=== PATIENT | female | born 2000 | race Caucasian/White ===

== ENCOUNTER → 2020-10-15 11:50 | Outpatient (BNVA) | payer OTHER, SELFPAY | PROVIDERS: PCP Nurse Practitioner Family; Visit Provider Nurse Practitioner Family | DX: E05.90 Thyrotoxicosis, unspecified without thyrotoxic crisis or storm (principal); F41.9 Anxiety disorder, unspecified; F32.9 Major depressive disorder, single episode, unspecified; Z13.6 Encounter for screening for cardiovascular disorders; E55.9 Vitamin D deficiency, unspecified; Z79.899 Other long term (current) drug therapy | CPT/HCPCS: 85025 ==

== ENCOUNTER → 2020-10-15 12:00 | Outpatient (BNVA) | payer OTHER, SELFPAY | PROVIDERS: PCP Nurse Practitioner Family; Visit Provider Nurse Practitioner Family | DX: E05.90 Thyrotoxicosis, unspecified without thyrotoxic crisis or storm (principal); F41.9 Anxiety disorder, unspecified; F32.9 Major depressive disorder, single episode, unspecified; Z13.6 Encounter for screening for cardiovascular disorders; E55.9 Vitamin D deficiency, unspecified; Z79.899 Other long term (current) drug therapy | CPT/HCPCS: 80053; 80061; 82306; 82310; 83036; 83516; 83970; 84439; 84443; 84481 ==

== ENCOUNTER → 2020-12-15 09:32 | Outpatient (BNVA) | payer OTHER, SELFPAY | PROVIDERS: PCP Nurse Practitioner Family; Visit Provider Nurse Practitioner Family | DX: E05.90 Thyrotoxicosis, unspecified without thyrotoxic crisis or storm (principal) | CPT/HCPCS: 83516; 84439; 84443; 84480; 86376 ==

== ENCOUNTER → 2020-12-24 10:50 | Outpatient (BNVA) | payer OTHER, SELFPAY | PROVIDERS: PCP Nurse Practitioner Family; Visit Provider Internal Medicine | DX: E05.90 Thyrotoxicosis, unspecified without thyrotoxic crisis or storm (principal); E04.2 Nontoxic multinodular goiter; E55.9 Vitamin D deficiency, unspecified; R00.0 Tachycardia, unspecified; Z87.891 Personal history of nicotine dependence | CPT/HCPCS: 99214 ==

== ENCOUNTER → 2021-01-31 10:15 | Outpatient (BNVA) | payer OTHER, SELFPAY | PROVIDERS: PCP Nurse Practitioner Family; Visit Provider Internal Medicine | DX: E05.90 Thyrotoxicosis, unspecified without thyrotoxic crisis or storm (principal); E04.2 Nontoxic multinodular goiter; R00.0 Tachycardia, unspecified; Z87.891 Personal history of nicotine dependence | CPT/HCPCS: 99214 ==

== ENCOUNTER → 2021-02-16 11:44 | Outpatient (BNVA) | payer OTHER, SELFPAY | PROVIDERS: PCP Nurse Practitioner Family; Visit Provider Nurse Practitioner Family | DX: E04.2 Nontoxic multinodular goiter (principal); E05.90 Thyrotoxicosis, unspecified without thyrotoxic crisis or storm | CPT/HCPCS: 85025 ==

== ENCOUNTER 2021-03-25 07:06 | Outpatient (CLI) | payer OTHER, SELFPAY ==
--- NOTE | 2021-03-25 07:17 | US_ITS ---
WS: [id number] ULTRASOUND BREAST RIGHT TECHNIQUE: Ultrasound right breast focused area of concern. CLINICAL INFORMATION: UNSPEC LUMP IN RIGHT BREAST UPPER OUTER QUADRNT COMPARISON: Outside Ultrasound August 04, 2020 FINDINGS: Ultrasound right breast at the 10:00 position 3 cm from the nipple. Again seen is the 2.0 x 1.1 x 1.8 cm hypoechoic well-circumscribed lesion at the 10:00 position 3 cm from the nipple likely fibroadeno ma. This is unchanged in appearance from the prior outside examination. This is probably benign. US/US breast RT limited* [id number] IMPRESSION: BI-RADS 3 probably benign FOLLOW UP: Recommend additional six-month follow-up ultrasound to confirm stabi lity. Alternatively, this could be further evaluated with ultrasound-guided biopsy fo r definitive evaluation
== END 2021-03-25 07:07 | disposition home or self-care (01) ==
PROVIDERS: PCP Nurse Practitioner Family; Visit Provider Nurse Practitioner Family
DX: N63.11 Unspecified lump in the right breast, upper outer quadrant (principal)
CPT/HCPCS: 76642

== ENCOUNTER 2021-07-22 12:24 | Outpatient (CLI) | payer OTHER, SELFPAY ==
--- NOTE | 2021-07-22 12:43 | US_ITS ---
WS: [id number] ULTRASOUND-GUIDED RIGHT BREAST BIOPSY HISTORY: LUMP IN RIGHT BREAST COMPARISON: 03/25/2021 Procedure, risks and complications are explained to the patient. Medications are reviewed. Consent is obtained. The mass in the RIGHT breast is localized with ultrasound. Mass localizes to 10:00, 3 cm from the nip ple. Skin is cleansed with ChloraPrep and anesthetized with 1% buffered lidocaine. Small dermatome is made. Under sterile conditions mass is biopsied with a 14-gauge Achieve needle. Multiple core biopsi es are performed. Material placed in formalin and sent to pathology for review. No complications enco untered. Breast tissue marker ([employer] ultrasound enhanced ribbon): Single. Patient left the radiology suite with no complications. Patient is instructed to return to [facility] with any concerns. US/[place] [id number] IMPRESSION: 1. Uncomplicated core needle biopsy RIGHT breast mass at 10:00. PATHOLOGY: Benign fibroadenoma. No atypia or malignancy. RECOMMENDATION: No additional imaging necessary. This could be surgically remov ed patient desires.
== END 2021-07-22 12:25 | disposition home or self-care (01) ==
PROVIDERS: PCP Nurse Practitioner Family; Visit Provider Nurse Practitioner Family
DX: N63.11 Unspecified lump in the right breast, upper outer quadrant (principal)
CPT/HCPCS: 19083; 88305

== ENCOUNTER 2021-08-31 15:11 | Observation (INO) | payer OTHER, SELFPAY ==
[2021-08-30 09:46] VITALS: BMI 16.9
[2021-08-31] VITALS (22 sets, daily range): BP systolic 101–126; BP diastolic 53–72; PULSE 54–79; RESP 12–20; TEMP 36.2–37.1; O2SAT 95–99; BMI 17.2
[2021-08-31] MEDS: sodium chloride 0.9% 1,000 ML 30 ML IV ×2 (06:41→12:02)
--- NOTE | 2021-08-31 06:43 | W.PM.OPSUD ---
Surgery/Procedure H&P Update DATE OF PROCEDURE: August 31, 2021 DATE H&P PERFORMED: 08/19/21 PRIMARY INDICATION FOR PROCEDURE: Grave's disease, uncontrolled PLANNED PROCEDURE: Operation Date: 08/31/21 07:00 Proposed Procedures p Total Thyroidectomy 72317,E0500,E042(Not Applicable) - Johnny Samuels MD
[2021-08-31 06:48] LABS: OR HCG Qualitative Urine Negative (Negative)
--- NOTE | 2021-08-31 07:02 | ANES.PREANE2 ---
Pre-Anesthetic Assessment Height/Weight: Height 1.68 m Weight 47.627 kg Temp Pulse Resp BP Pulse Ox 98.8 F 67 17 106/72 99 08/31/21 06:13 08/31/21 06:13 08/31/21 06:13 08/31/21 06:13 08/31/21 06:13 Operation Date: 08/31/21 07:00 Proposed Procedures p Total Thyroidectomy 25910,E0500,E042(Not Applicable) - Johnny Samuels MD Familial anesthetic complications: None Was Beta Brian taken within 24 hours: Yes Was Clonidine taken within 24 hours: N/A Last intake: Intake Last Liquid Date 08/30/21 Last Liquid Time 23:58 Last Solid Date 08/30/21 Last Solid Time 19:00 Social Tobacco (emilie) and No alcohol Exam alert, oriented x 3, clear to auscultation bilaterally and regular rate & rhythm Airway Submandibular: within normal limits Cervical ROM: within normal limits Mallampati: Class II Dentition: chipped Metabolic Thyroid Disease (hyperthyroid, goiter) Neuropsych Anxiety and Depression Anesthetic Plan ASA status: 2 Anesthesia: General Medications/Allergies Home Medications Medication Instructions Recorded Confirmed Last Taken Type cholecalciferol (vitamin D3) 10 10 mcg PO DAILY 01/31/21 08/31/21 08/30/21 10:00 History mcg (400 unit) capsule cetirizine 10 mg tablet (All Day 10 mg PO DAILY PRN 30 Days #30 tab 03/04/21 08/30/21 Unknown Rx Allergy (cetirizine)) methimazole 10 mg tablet 40 mg PO DAILY #360 tab 04/29/21 08/31/21 08/30/21 10:00 Rx cholestyramine (with sugar) 4 gram 4 g PO BID #378 g 07/26/21 08/31/21 08/30/21 10:00 Rx oral powder hydroxyzine HCl 25 mg tablet 25 mg PO ONCE tab 07/26/21 08/31/21 08/30/21 23:58 History sertraline 50 mg tablet 100 mg PO DAILY tab 07/26/21 08/31/21 08/30/21 17:00 History propranolol 10 mg tablet 20 mg PO TID 08/30/21 08/31/21 08/30/21 23:58 History iodine 18 ea MISCELLANEOUS TID 08/31/21 08/31/21 08/31/21 04:30 History Allergies Allergy/AdvReac Type Severity Reaction Status Date / Time No Known Allergies Allergy Verified 08/31/21 06:14 Current Medications Generic Name Dose Route Start Last Admin Trade Name Qamar PRN Reason Stop Dose Admin Sodium Chloride 1,000 mls @ 30 mls/hr 08/31/21 06:15 08/31/21 06:41 Sodium Chloride 0.9% IV 09/01/21 06:14 30 mls/hr .Q24H MATTHEW Administration PFSH Anesthesia Medical History Acute bacterial sinusitis Anxiety and depression Hyperthyroidism Multinodular goiter Tachyarrhythmia Vitamin D deficiency Surgical History No pertinent past surgical history Family History Other Hypertension Social History Smoking and tobacco status: former smoker Quit status (tobacco): has quit using tobacco Second hand smoke exposure: Yes Smoking risk assessment/counseling performed?: Yes Alcohol intake: current Alcohol intake frequency: few times a month Alcohol type: other Desire information about alcohol rehabilitation?: No Counseling given: No Desire information about substance/drug rehabilitation?: No Counseling given: Yes Adopted: No Caregiver/support person: No Lives independently: Yes Household members: other Housing: Apartment Marital status: Number of children: 0 Highest education level completed: High School Graduate service: No Current occupational status: employed History of recent travel: No Female Reproductive History Date of last menstrual period: 09/04/21 Data Anesthesia Cardiac Studies: No Data to Display
[2021-08-31] MEDS: EPINEPHrine 1 mg/mL INJ 2 MG XX (08:43)
[2021-08-31] MEDS: fluorescein 1 mg Strip XX (08:45)
[2021-08-31] MEDS: ceFAZolin 1,000 mg SDV 1000 MG IRRIGATION (08:46)
[2021-08-31] MEDS: thrombin 5,000 unit SDV 5000 UNIT XX (09:01)
[2021-08-31] MEDS: neomycin-poly-bacitracin oint 28 gm 1 APPLIC TOPICAL (09:07)
[2021-08-31] MEDS: EPINEPHrine 1 mg/mL INJ XX (09:55)
--- NOTE | 2021-08-31 10:45 | PM.OP ---
Operative Report Date of procedure: August 31, 2021 Pre-op diagnosis: Grave's disease, uncontrolled Post-op diagnosis: same Post-op findings: Goiterous bilateral thyroid gland Normal bilateral recurrent laryngeal nerves Normal bilateral parathyroid glands Procedure done: Total thyroidectomy Specimens removed/disposition: Right and Left thyroid lobes Pathology: Right and left thyroid lobes Surgeon: Johnny Samuels Cisco Administrator: Camille Gabriel Anesthesia: General Estimated blood loss (mL): 25 IV fluids (mL): 900 Urine output (mL): 500 Complications: None Findings: Goiterous bilateral thyroid gland Normal bilateral recurrent laryngeal nerves Normal bilateral parathyroid glands Condition: stable Disposition: ICU Brief History: 21 yo wf who has a h/o Grave's disease that has been poorly controlled on medical therapy. The patient desires surgical thyroidectomy. Procedure: The patient was identified in the preoperative holding area and was taken to the operating room where she was placed on the operating table in the supine position. Anesthesia was obtained with general endotracheal anesthesia after placing the nerve monitoring electrode on the endotracheal tube and ensuring its proper placement with the glide scope. A horizontal skin incision was drawn out over the anterior neck 2 fingerbreadths above the sternal notch between the heads of the sternocleidomastoid muscle. The neck wound was injected with local anesthesia and the patient was then prepped and draped in the usual sterile fashion. The incision was made with a 15 blade and was carried down through the subcutaneous tissues with electrocautery until the strap muscles were identified. The strap muscles were then divided in the sagittal plane in the avascular midline, and attention was then turned to the patient's left thyroid lobe. After placing the [place] retractor, the left thyroid lobe was dissected free from the surrounding tissues with the Neurvana nerve monitoring hemostat. Once the general outlines of the left thyroid lobe had been identified, attention was turned to the left carotid sheath and the left vagus nerve was stimulated with a positive response in the left carotid sheath. At this point a circumferential dissection occurred around the patient's left thyroid lobe with attention initially to the left lower pole. The individual vessels were dissected off the thyroid capsule at the inferior pole and were clipped and ligated in a sequential fashion. As the dissection proceeded, the left thyroid lobe was rotated medially and the recurrent laryngeal nerve was identified in the tracheoesophageal groove electrically with the nerve monitoring hemostat and then visually with 5 power loupe magnification. At this point the thyroid isthmus was dissected off of the trachea and was divided with the harmonic scalpel. The dissection then proceeded up to the superior pole of the left thyroid lobe and each of the individual vessels was dissected free from the surrounding tissues. The superior pole vessels were then individually ligated at the capsule with ligaclips, and were divided with bipolar cautery. As the dissection thus proceeded, the recurrent laryngeal nerve and parathyroids came into view and were preserved in place. The left lobe was then rotated medially and was dissected off of the airway by dividing Barrera's ligament while protecting the recurrent laryngeal nerve with microbipolar forceps. Once the left lobe was removed it was inspected for parathyroids and none were identified on the specimen. The specimen was then handed off and attention was turned to the left tracheoesophageal groove for hemostasis. Hemostasis was achieved with bipolar cautery and ligaclips. Once hemostasis had been achieved and the viability of the parathyroid glands have been ensured, the left tracheoesophageal groove was filled with Gelfoam soaked in thrombin and dexamethasone. At this point the left vagus was again restimulated and with positive results ensuring the viability of the left recurrent laryngeal nerve. At this point attention was turned to the right thyroid lobe where a identical procedure was performed. At this point with both lobes removed, a 10 mm [place] drain was placed in the wound and the wound was closed with interrupted 4-0 and 5-0 Monocryl sutures and subcu and Dermabond and Steri-Strips on the skin. At this point the procedure was terminated and control of the patient was returned to anesthesia where she underwent an uneventful reversal of anesthesia and extubation was taken to the recovery room stable condition. There were no operative or anesthetic complications.
[2021-08-31] MEDS: fentaNYL 50 mcg/mL INJ 2mL IVP (11:00)
[2021-08-31 11:43] LABS: Calcium 8.9 mg/dL (8.5-10.5)
[2021-08-31 11:51] LABS: Parathyroid Hormone 9.6 pg/mL (15-65)
--- NOTE | 2021-08-31 14:13 | ANE.PACU2 ---
Inpatient post-anesthesia follow up: Airway intact: Yes Vital signs: Temperature 97.7 F Pulse Rate 64 Respiratory Rate 16 Blood Pressure 105/65 Pulse Oximetry 97 Oxygen Delivery Me thod Room Air Oxygen Flow Rate Fraction of Inspir ed Oxygen Hydration adequate: Yes Nausea and vomiting: No Pain level: 2 Mental status: Baseline
[2021-08-31] MEDS: lactated ringers 1,000 ML 100 ML IV (16:14)
[2021-08-31] MEDS: HYDROcodone-acetaminophen 5-325 mg Tablet 1 TAB PO ×2 (16:17→22:36)
[2021-08-31] MEDS: ceFAZolin 1,000 MG in sodium chloride 0.9% (plus) 50 ML 100 MG IV ×2 (16:51→22:37)
[2021-08-31] MEDS: docusate sodium 100 mg Capsule PO (16:59)
[2021-08-31] MEDS: famotidine 20 mg/2 mL INJ IVP (16:59)
[2021-08-31 17:27] LABS: Glucose Point of Care 181 mg/dL (70-110)
--- NOTE | 2021-08-31 17:35 | P.PN_ITS ---
Subjective Subjective: 21 yo wf with a h/o Grave's disease who is night of surgery s/p total thyroidectomy. The patient is without c/o. Medications: Reviewed: Yes Vitals/I&O/Wt Last Vital Signs Temp 98.2 F 08/31/21 15:36 Pulse 64 08/31/21 15:36 Resp 12 08/31/21 15:36 BP 108/64 08/31/21 15:36 Pulse Ox 98 08/31/21 15:36 08/31/21 08/31/21 08/31/21 06:59 14:59 22:59 Intake Total 1350 / 1350 975.5 / 2325.5 Output Total 1350 / 1350 10 / 1360 Balance 0 / 0 965.5 / 965.5 Weight last 48 hrs Weight 48.353 kg Weight 47.627 kg Physical Exam Const: COMMON NORMALS: no acute distress, patient oriented x3 and healthy appearing HENMT: COMMON NORMALS: normocephalic, atraumatic and Normal external nose present HEAD & SCALP: normocephalic and atraumatic FACE & SINUS: normal facial exam NOSE: Normal external nose present MOUTH: Normal oral and palatal mucosa present Neck/C-Spine: COMMON NORMALS: full ROM GENERAL: Yes other THYROID: other (The patient's neck wound is clean and without swelling. ) Chest: COMMONS NORMALS: normal inspection of the chest Resp: COMMON NORMALS: normal respiratory effort, No use of accessory muscles and clear to auscultation bilaterally AUSCULTATION: clear to auscultation bilaterally Neuro: COMMON NORMALS: patient oriented x3 Urinary Catheter Management: [place]: Cath Placed During This Visit: yes Urinary Catheter Date of Insertion: 08/31/21 Urinary Catheter Time of Insertion: 07:20 Data Attestation for Other Data: I personally reviewed and interpreted the following: Other data: Serum Calcium and PTH levels A&P Assessment and plan (1) Hyperthyroidism: Impression: Night of surgery doing well from this standpoint Plan: - Observation of the patient's airway - Closed suction drainage - Will d/c when the patient's post op calcium levels are stable Status: Acute (2) Parathyroid hormone deficiency: Impression: Post op serum calcium level is moderately low Plan: - Begin Calcitriol 0.25 mcg po BID - Begin Tums 1000 mg po Q4 hours - Will recheck serum calcium levels BID - Will discharge the patient when serum calcium levels are stable Status: Acute Attestations Medical Necessity Statement*: The patient is admitted for monitoring of her post op serum calcium levels and airway Coding Level of Care Code Acute Nuclear Reactor Operator for Chg Fwd Diagnoses Hyperthyroidism E05.90 Parathyroid hormone deficiency E20.9
[2021-08-31] MEDS: calcium carbonate 500 mg Chew Tablet 1000 MG PO ×2 (17:49→21:40)
[2021-08-31] MEDS: calcitriol 0.25 mcg Capsule PO (17:50)
--- NOTE | 2021-08-31 18:04 | PC.NURSE ---
serium calcium order given at 0500 and 1700 BID . call with results.
--- NOTE | 2021-08-31 18:04 | PC.NURSE ---
bonnet applied to patient. knits visualized. physician notified , no new orders given at this time.
[2021-08-31 18:44] LABS: Calcium 7.8 mg/dL (8.5-10.5)
[2021-08-31] MEDS: propranolol 20 mg Tablet PO (21:41)
[2021-09-01] VITALS (11 sets, daily range): BP systolic 97–132; BP diastolic 61–78; PULSE 43–75; RESP 12–18; TEMP 36.4–37.1; O2SAT 97–100
--- NOTE | 2021-09-01 01:56 | PC.NURSE ---
i reported low heart rate 53 to nurse
[2021-09-01] MEDS: calcium carbonate 500 mg Chew Tablet 1000 MG PO ×6 (02:33→20:58)
[2021-09-01] MEDS: lactated ringers 1,000 ML 100 ML IV ×3 (02:33→22:46)
--- NOTE | 2021-09-01 05:02 | P.PN_ITS ---
Subjective Subjective: 21 yo wf who is POD #1 s/p total thyroidectomy for Grave's disease. The patient reports that she is doing well. She has no c/o. Medications: Reviewed: Yes Vitals/I&O/Wt Last Vital Signs Temp 98.7 F 09/01/21 00:00 Pulse 53 L 09/01/21 00:00 Resp 18 09/01/21 00:00 BP 109/67 09/01/21 00:00 Pulse Ox 99 09/01/21 00:00 08/31/21 08/31/21 09/01/21 14:59 22:59 06:59 Intake Total 1350 / 1350 1025.5 / 2375.5 1050 / 3425.5 Output Total 1350 / 1350 20 / 1370 Balance 0 / 0 1005.5 / 1005.5 1050 / 2055.5 Weight last 48 hrs Weight 48.353 kg Weight 47.627 kg Physical Exam Const: COMMON NORMALS: no acute distress and patient oriented x3 HENMT: COMMON NORMALS: normocephalic, atraumatic and Normal external nose present HEAD & SCALP: normocephalic and atraumatic FACE & SINUS: other (Negative Chvostek's sign. ) NOSE: Normal external nose present TEETH & GINGIVA: Yes poor dentition Eye: COMMON NORMALS: conjunctivae normal CONJUNCTIVA: Yes conjunctivae normal Neck/C-Spine: COMMON NORMALS: no lymphadenopathy GENERAL: Yes other (Neck wound intact without swelling or redness.) Resp: COMMON NORMALS: normal respiratory effort Cardio: COMMON NORMALS: regular rate, regular rhythm and No murmurs present (Cardio) RATE: regular rate RHYTHM: regular rhythm GI: COMMON NORMALS: Normal to inspection, nondistended, normoactive bowel sounds present Extremity: COMMON NORMALS: normal to inspection Neuro: COMMON NORMALS: patient oriented x3 and CN's II-XII intact bilaterally SENSORIUM/ORIENTATION: Yes other (The patient's voice is unchanged from preop.) Urinary Catheter Management: [place]: Cath Placed During This Visit: yes Urinary Catheter Date of Insertion: 08/31/21 Urinary Catheter Time of Insertion: 07:20 Data Other Labs: Serum Calcium level pending A&P Assessment and plan (1) Hyperthyroidism: Impression: 21 yo wf who is POD #1 s/p Total thyroidectomy doing well except as noted below Plan: - Regular diet - Closed suction drainage - The patient is to remain admitted until serum calcium level is stable Status: Acute (2) Parathyroid hormone deficiency: Impression: Post op hypocalcemia - most likely temporary Plan: - Started po Calcitriol and Tums Q4 hours yesterday - We will check serum calcium and albumin levels BID - The patient will be discharged when serum calcium levels are stable Status: Acute Attestations Medical Necessity Statement*: The patient is admitted for monitoring of her airway and post op serum calcium levels. Coding Level of Care Code Acute Telephone Information Supervisor for Chg Fwd Diagnoses Hyperthyroidism E05.90 Parathyroid hormone deficiency E20.9
[2021-09-01 05:52] LABS: Albumin Level 3.7 g/dL (3.5-5.2)
--- NOTE | 2021-09-01 06:21 | PC.NURSE ---
i reported low pulse 50 to nurse
[2021-09-01] MEDS: famotidine 20 mg/2 mL INJ IVP (09:13)
[2021-09-01] MEDS: calcitriol 0.25 mcg Capsule PO ×2 (09:13→17:47)
[2021-09-01] MEDS: docusate sodium 100 mg Capsule PO ×2 (09:14→17:43)
[2021-09-01] MEDS: sertraline 100 mg Tablet PO (09:14)
--- NOTE | 2021-09-01 09:47 | PC.CHAP ---
Pastoral Care Encounter/Spiritual Assessment Type of Contact [] Declined wrong address clerk visit [] Patient/Family/Request visit [] Outpatient visit [] Follow-up visit [] Physician referral [] Code/Alert [] Routine visit [] Staff referral [] Actively dying [] Patient sleeping [] Family support [] [] Out of room [] Palliative care [x] [] Receiving care in room [] Pre-surgical visit [] Trauma [] Long length of stay [] ICU visit [] Other: Relational/Emotional Strength [] Patient feels connected with others/family/visitors/staff [] Distress [] Loneliness/isolation [] Abandonment Spirituality of Patient [] Person of Jennifer [] Attends Uatsdin of their Jennifer [] Believes in Prayer [] Reads Bible or Muslim materials [] There are Spiritual issues to be addressed Mail List Processor Interventions [] Prayer [] Active listening [] Non-anxious presence [] Spiritual/emotional support [] Crisis/trauma care [] Spiritual counseling [] Bereavement support [] Provided bereavement packet [] Provided Bible/devotional materials [] Provided toy/stuffed animal, coloring book to patient or family member [] Provided Communion [] Anointing/[place] [] Salvation [] Completed spiritual assessment [] Other: Impact on Illness or Injury [] Angry [] Fearful [] Anxious [] Often cries [] Exhaustion [] Unable to work [] Unable to attend yazidism [] Unable to walk/stand [] Unable to read [] Unable to drive [] Unable to eat/drink [] Unable to sleep [] Unable to be with family [] Patient intubated [] Other: Summary Time spent with patient 5 mins
[2021-09-01] MEDS: HYDROcodone-acetaminophen 5-325 mg Tablet 1 TAB PO ×3 (11:18→20:57)
[2021-09-01] MEDS: neomycin-poly-bacitracin oint 28 gm 1 APPLIC TOPICAL ×2 (13:26→21:06)
[2021-09-01] MEDS: propranolol 20 mg Tablet PO (15:12)
[2021-09-01 17:43] LABS: Calcium 8.4 mg/dL (8.5-10.5)
[2021-09-01] MEDS: famotidine 20 mg Tablet PO (17:43)
[2021-09-02] MEDS: calcium carbonate 500 mg Chew Tablet 1000 MG PO ×2 (02:50→05:39)
[2021-09-02 03:55] VITALS: BP 108/64; PULSE 68; RESP 15; TEMP 36.6; O2SAT 93
--- NOTE | 2021-09-02 05:37 | PM.PN ---
Subjective Subjective: 21 yo wf who is POD #2 s/p total thyroidectomy. The patient has had post op hypocalcemia, but has no c/o relating to this. She is taking po well, and is o/w without c/o. Medications: Reviewed: Yes Vitals/I&O/Wt Last Vital Signs Temp 97.8 F 09/02/21 03:55 Pulse 68 09/02/21 03:55 Resp 15 09/02/21 03:55 BP 108/64 09/02/21 03:55 Pulse Ox 93 09/02/21 03:55 09/01/21 09/01/21 09/02/21 14:59 22:59 06:59 Intake Total 1240 / 1240 1000 / 2240 Output Total 5 / 5 Balance 1235 / 1235 1000 / 2235 Weight last 48 hrs Weight 48.353 kg Physical Exam Const: COMMON NORMALS: no acute distress and patient oriented x3 HENMT: COMMON NORMALS: normocephalic, atraumatic and Normal external nose present HEAD & SCALP: normocephalic and atraumatic NOSE: Normal external nose present TEETH & GINGIVA: Yes poor dentition Eye: COMMON NORMALS: conjunctivae normal CONJUNCTIVA: Yes conjunctivae normal Neck/C-Spine: COMMON NORMALS: supple GENERAL: Yes other (The neck incision is intact without swelling or redness.) Resp: COMMON NORMALS: normal respiratory effort, No retractions, No use of accessory muscles and clear to auscultation bilaterally AUSCULTATION: clear to auscultation bilaterally GI: COMMON NORMALS: Normal to inspection, nondistended, normoactive bowel sounds present Neuro: COMMON NORMALS: patient oriented x3 and CN's II-XII intact bilaterally SENSORIUM/ORIENTATION: Yes other (The patient's voice is unchanged from preop) Urinary Catheter Management: [place]: Cath Placed During This Visit: yes Urinary Catheter Date of Insertion: 08/31/21 Urinary Catheter Time of Insertion: 07:20 A&P Assessment and plan (1) Hyperthyroidism: Impression: 21 yo wf who is POD #2 s/p Total thyroidectomy who is doing well except as noted below Plan: - [place] (5/325) tabs: take 1-2 tabs po Q5 hours prn pain, #25, NR - Continue closed suction drainage and apply NOE to the drain site TID - F/U in Dr. Samuels's office on 08/05/21 @ 13:00 hours for drain removal - Notify Dr. Samuels for any problems Status: Acute (2) Parathyroid hormone deficiency: The patient is to take the following meds: - Calcitriol 0.25mcg po BID, #60, RX2 - Synthroid: 100mcg po QD - Tums: 2 tabs po Q4 hours (OTC) - Notify Dr. Samuels for any perioral tingling or cramping Status: Acute Attestations Medical Necessity Statement*: The patient was admitted to observe her post op serum calcium levels and to monitor her airway. Coding Level of Care Code Acute Environmental Technology Professor for [facility] [place] Fwd Diagnoses Hyperthyroidism E05.90 Parathyroid hormone deficiency E20.9
[2021-09-02 05:45] LABS: Calcium 8.1 mg/dL (8.5-10.5)
[2021-09-02 05:57] LABS: Albumin Level 3.4 g/dL (3.5-5.2)
[2021-09-02 06:00] VITALS: PULSE 55
[2021-09-02 07:27] VITALS: BP 126/79; PULSE 56; RESP 16; TEMP 36.4; O2SAT 99
[2021-09-02] MEDS: sertraline 100 mg Tablet PO (09:04)
[2021-09-02] MEDS: famotidine 20 mg Tablet PO (09:04)
[2021-09-02] MEDS: calcitriol 0.25 mcg Capsule PO (09:04)
[2021-09-02] MEDS: neomycin-poly-bacitracin oint 28 gm 1 APPLIC TOPICAL (09:05)
[2021-09-02] MEDS: docusate sodium 100 mg Capsule PO (09:05)
[2021-09-02 09:35] VITALS: BP 126/79; PULSE 56; RESP 16; TEMP 36.4; O2SAT 99
== END 2021-09-02 09:37 | disposition home or self-care (01) ==
LOC: MEDSURG 15:33
PROVIDERS: Anesthesiology; Admitting Provider Specialist; PCP Nurse Practitioner Family; Visit Provider Specialist
PROC: (CPT 60240; principal; 2021-08-31 07:00)
DX: E05.90 Thyrotoxicosis, unspecified without thyrotoxic crisis or storm (principal); E20.9 Hypoparathyroidism, unspecified
CPT/HCPCS: 60240; 12345; 36415; 36416; 51702; 81025; 82040; 82310; 82962; 83970; 84703; 88307; G0378; J0171; J0330; J0690; J1100; J2370; J2704; J3010; J3490; J7030

== ENCOUNTER 2021-09-05 08:28 | Outpatient (CLI) | payer OTHER, SELFPAY ==
[2021-09-05 09:46] LABS: Albumin Level 4.4 g/dL (3.5-5.2)
[2021-09-05 09:53] LABS: Free T4 Free Thyroxine 1.13 ng/dL (0.82-1.77)
[2021-09-05 10:13] LABS: Calcium 9.2 mg/dL (8.5-10.5)
[2021-09-05 10:18] LABS: Parathyroid Hormone 15.2 pg/mL (15-65)
== END 2021-09-05 08:29 | disposition home or self-care (01) ==
PROVIDERS: PCP Nurse Practitioner Family; Referring Provider Internal Medicine; Visit Provider Specialist
DX: E04.2 Nontoxic multinodular goiter (principal); E05.90 Thyrotoxicosis, unspecified without thyrotoxic crisis or storm; E20.9 Hypoparathyroidism, unspecified; R00.0 Tachycardia, unspecified
CPT/HCPCS: 36415; 82040; 82310; 83970; 84439

== ENCOUNTER → 2023-05-16 11:08 | Outpatient (BNVA) | payer SELFPAY | PROVIDERS: Visit Provider Internal Medicine | DX: E89.0 Postprocedural hypothyroidism (principal); E20.9 Hypoparathyroidism, unspecified; E03.9 Hypothyroidism, unspecified | CPT/HCPCS: 36415; 80053; 82306; 82310; 83970; 84439; 84443 ==